=== PATIENT | male | born 1990 | race Hispanic/Latino ===

== ENCOUNTER 2022-05-06 17:33 | Emergency (ER) | payer OTHER, SELFPAY ==
[~2022-05-06 17:33] MED LIST: Sodium Chloride 0.9% 1,000 ML BAG ONE
[2022-05-06] MEDS ORDERED: Sodium Chloride 0.9% 1,000 ML ONE ×2 (17:36→17:59)
[2022-05-06] MEDS ORDERED: methylPREDNISolone Sod Succ/PF 125 MG/2 ML VIAL ONE (17:39)
[2022-05-06] MEDS ORDERED: EPINEPHrine 1 MG/ML VIAL ONE ×2 (17:44→17:49)
[2022-05-06] MEDS ORDERED: diphenhydrAMINE 50 MG/ML VIAL ONE (17:46)
[2022-05-06] MEDS ORDERED: EPINEPHrine 1 MG/10 ML Abboject SYRINGE ONE (17:48)
[2022-05-06] MEDS ORDERED: Famotidine/PF 20 mg/2ml Vial ONE (17:54)
[2022-05-06 17:59] LABS: ALT (SGPT) 16 U/L (8-55); AST (SGOT) 21 U/L (5-34); Albumin 4.3 g/dL (3.5-5.0); Alkaline Phosphatase 94 U/L (40-110); Anion Gap 24 mmol/L (10-20); BUN (Urea Nitrogen) 16 mg/dL (8.9-20.6); Calc. Creatinine Clearance 0 mL/min (70-130); Calcium 10.2 mg/dL (7.8-10.44); Carbon Dioxide 18 mmol/L (22-29); Chloride 106 mmol/L (98-107); Estimated GFR 49; Globulin 3.4 g/dL (2.4-3.5); Glucose 164 mg/dL (70-105); Potassium 3.6 mmol/L (3.5-5.1); Protein, Total 7.7 g/dL (6.0-8.3); Sodium 144 mmol/L (136-145)
[2022-05-06 18:04] LABS: Band 4 % (5-11); Eosinophils 1 % (0-10); Hemoglobin 18.9 g/dL (14.0-18.0); Lymphocytes 44 % (21-51); MDiff Complete? YES; Mean Corpuscular HGB CONC 32.5 g/dL (32.0-36.0); Mean Corpuscular Hemoglobin 29.6 pg (27.0-31.0); Mean Corpuscular Volume 91.1 fL (78.0-98.0); Monocytes 3 % (0-10); Neutrophil 43 % (42-75); Platelet Count 441 thou/uL (130-400); Platelet Morphology Comment Appears Increased; RBC Distribution Width 11.3 % (11.5-14.5); Reactive Lymphocytes 5 % (0-10); Red Blood Cell (RBC) Count 6.36 mill/uL (4.70-6.10); White Blood Cell (WBC) Count 16.9 thou/uL (4.8-10.8)
[2022-05-06 18:33] LABS: Magnesium 2.4 mg/dL (1.6-2.6)
[2022-05-06 18:55] LABS: INR-International Normal Ratio 1.3
[2022-05-06 19:01] LABS: PTT Greater than 250.0 sec (22.9-36.1)
[2022-05-06] MEDS ORDERED: Albuterol Sulfate 2.5 mg/3 ml Neb ONE (19:31)
[2022-05-06] MEDS ORDERED: Ondansetron PF 4 MG/2 ML Vial ONE (19:31)
== END 2022-05-06 19:50 | disposition short-term general hospital (02) ==
LOC: EDBD 17:33 → MADERS 17:33
DX: T78.2XXA Anaphylactic shock, unspecified, initial encounter (principal); Y92.69 Other specified industrial and construction area as the place of occurrence of the external cause
CPT/HCPCS: 71045; 80053; 83605; 83735; 85025; 85610; 85730; 93005; 96372; 96374; 96375; J0171; J1200; J2405; J2930; J7050; J7611; J7620; S0028